=== PATIENT | female | born 1970 | race Caucasian/White ===

== ENCOUNTER → 2017-07-20 | Outpatient (CLI) | payer OTHER ==
--- NOTE | 2017-07-20 08:24 | Diagnostic Imaging Report ---
PROCEDURE:US ABDOMEN LIMITED COMPARISON:CT abdomen pelvis 02/18/2014. INDICATIONS:Subcutaneous Nodules TECHNIQUE: Esqueda-scale and color doppler transverse and longitudinal images of the area of interest in the right lower quadrant of the abdomen were obtained by the [employer] radio operator and staff radiologist Dr. Mcclelland FINDINGS: Sonographic imaging of the area of clinical concern shows normal subcutaneous fat, fascia, and abdominal wall musculature. No discrete mass lesion or fluid collection is identified. CONCLUSION: No mass lesion or fluid collection is identified in the sonographically evaluated area of clinical concern. Given the patient's reported history of endometriosis status post hysterectomy, CT of the abdomen and pelvis with contrast may be of benefit to evaluate for residual endometrial implants. Dictated by: James Mcclelland M.D. on 07/20/2017 at 8:26 Electronically approved by: James Mcclelland M.D. on 07/20/2017 at 8:26
== END ==
LOC: US 07:45
PROVIDERS: ATTEND Family Medicine
DX: R22.9 Localized swelling, mass and lump, unspecified (principal)
CPT/HCPCS: 76705